=== PATIENT | male | born 1975 | race American Indian/Alaskan Native ===

== ENCOUNTER 2021-09-14 12:18 | Inpatient (IN) | payer BC ==
[2021-09-14] MEDS ORDERED: SODIUM CHLORIDE 0.9% 1000 ML IV SOLN IV ONE (13:32)
--- NOTE | 2021-09-14 13:42 | Emergency Department Report ---
ED General Adult HPI - General Chief complaint: Chest Pain Stated complaint: SOB/CHEST PAIN/ TEMP Time Seen by Provider: 09/14/21 13:05 Source: patient Mode of arrival: Ambulatory Limitations: No Limitations - History of Present Illness Initial comments: The patient presents to the emergency department chief complaint of chest pain and fever that started this morning. Patient states that he has a history of lung cancer and is currently going through chemotherapy. Patient also states he has a history of HIV. He describes the chest pain is sharp in nature and denies any radiation of the chest pain. It is located throughout his whole chest. Patient states that he had a fever of 103 at home. He denies abdominal pain or headache. -: Sudden Location: chest Radiation: non-radiation Severity scale (0 -10): 7 Quality: sharp Consistency: constant Improves with: none Worsens with: none Associated Symptoms: denies other symptoms Treatments Prior to Arrival: none - Related Data Allergies Allergy/AdvReac Type Severity Reaction Status Date / Time No Known Allergies Allergy Unverified 09/14/21 13:00 ED Review of Systems ROS: Stated complaint: SOB/CHEST PAIN/ TEMP Other details as noted in HPI Constitutional: fever. denies: chills Eyes: denies: eye pain, eye discharge, vision change ENT: denies: ear pain, throat pain Respiratory: denies: cough, shortness of breath, wheezing Cardiovascular: chest pain. denies: palpitations Endocrine: no symptoms reported Gastrointestinal: denies: abdominal pain, nausea, diarrhea Genitourinary: denies: urgency, dysuria Musculoskeletal: denies: back pain, joint swelling, arthralgia Skin: denies: rash, lesions Neurological: denies: headache, weakness, paresthesias Psychiatric: denies: anxiety, depression Hematological/Lymphatic: denies: easy bleeding, easy bruising ED Past Medical Hx - Past Medical History Previous Medical History?: Yes Hx HIV: Yes Additional medical history: cancer ED Physical Exam - General Limitations: No Limitations General appearance: alert, in no apparent distress - Head Head exam: Present: atraumatic, normocephalic - Eye Eye exam: Present: normal appearance, PERRL, EOMI - ENT ENT exam: Present: mucous membranes moist - Neck Neck exam: Present: normal inspection - Respiratory Respiratory exam: Present: decreased breath sounds. Absent: respiratory distress - Cardiovascular Cardiovascular Exam: Present: normal rhythm, tachycardia. Absent: systolic murmur, diastolic murmur, rubs, gallop - GI/Abdominal GI/Abdominal exam: Present: soft, normal bowel sounds. Absent: distended, tenderness - Rectal Rectal exam: Present: deferred - Extremities Exam Extremities exam: Present: normal inspection - Back Exam Back exam: Present: normal inspection - Neurological Exam Neurological exam: Present: alert, oriented X3, CN II-XII intact. Absent: motor sensory deficit - Psychiatric Psychiatric exam: Present: normal affect, normal mood - Skin Skin exam: Present: warm, dry, intact, normal color. Absent: rash ED Course Vital Signs 09/14/21 09/14/21 09/14/21 12:57 13:15 13:24 Temperature 102 F H Pulse Rate 148 H Respiratory 18 Rate Blood Pressure Blood Pressure 104/78 [Left] O2 Sat by Pulse 99 99 92 Oximetry 09/14/21 09/14/21 09/14/21 13:30 13:45 14:00 Temperature Pulse Rate 139 H 137 H 137 H Respiratory 32 H 27 H 45 H Rate Blood Pressure 115/83 107/79 112/75 Blood Pressure [Left] O2 Sat by Pulse 95 94 95 Oximetry 09/14/21 09/14/21 09/14/21 14:15 16:10 16:35 Temperature 98.3 F Pulse Rate 134 H 121 H 121 H Respiratory 17 18 18 Rate Blood Pressure 114/80 110/75 Blood Pressure 110/75 [Left] O2 Sat by Pulse 96 99 99 Oximetry ED Medical Decision Making - Lab Data Result diagrams: 09/14/21 14:01 09/14/21 14:01 Lab Results 09/14/21 09/14/21 09/14/21 Range/Units 14:01 14:01 14:01 WBC 1.5 L* (4.5-11.0) K/mm3 RBC 2.54 L (3.65-5.03) M/mm3 Hgb 7.1 L (11.8-15.2) gm/dl Hct 21.6 L (35.5-45.6) % MCV 85 (84-94) fl MCH 28 (28-32) pg MCHC 33 (32-34) % RDW 18.8 H (13.2-15.2) % Plt Count 223 (140-440) K/mm3 Garfield % (Auto) Make Up Arranger Seg Neutrophils % Make Up Arranger APTT 43.4 H (24.2-36.6) Sec. Sodium 126 L (137-145) mmol/L Potassium 4.2 (3.6-5.0) mmol/L Chloride 89.0 L (98-107) mmol/L Carbon Dioxide 28 (22-30) mmol/L Anion Gap 13 mmol/L BUN 8 L (9-20) mg/dL Creatinine 0.6 L (0.8-1.3) mg/dL Estimated GFR > 60 ml/min BUN/Creatinine Ratio 13 % Glucose 115 H (75-100) mg/dL Lactic Acid (0.7-2.0) mmol/L Calcium 8.6 (8.4-10.2) mg/dL Total Bilirubin 0.40 (0.1-1.2) mg/dL AST 21 (5-40) units/L ALT 16 (7-56) units/L Alkaline Phosphatase 105 (35-129) units/L Troponin T < 0.010 (0.00-0.029) ng/mL Total Protein 7.1 (6.3-8.2) g/dL Albumin 2.7 L (3.9-5) g/dL Albumin/Globulin Ratio 0.6 % 09/14/ Range/Units 14:01 WBC (4.5-11.0) K/mm3 RBC (3.65-5.03) M/mm3 Hgb (11.8-15.2) gm/dl Hct (35.5-45.6) % MCV (84-94) fl MCH (28-32) pg MCHC (32-34) % RDW (13.2-15.2) % Plt Count (140-440) K/mm3 Garfield % (Auto) Seg Neutrophils % APTT (24.2-36.6) Sec. Sodium (137-145) mmol/L Potassium (3.6-5.0) mmol/L Chloride (98-107) mmol/L Carbon Dioxide (22-30) mmol/L Anion Gap mmol/L BUN (9-20) mg/dL Creatinine (0.8-1.3) mg/dL Estimated GFR ml/min BUN/Creatinine Ratio % Glucose (75-100) mg/dL Lactic Acid 1.10 (0.7-2.0) mmol/L Calcium (8.4-10.2) mg/dL Total Bilirubin (0.1-1.2) mg/dL AST (5-40) units/L ALT (7-56) units/L Alkaline Phosphatase (35-129) units/L Troponin T (0.00-0.029) ng/mL Total Protein (6.3-8.2) g/dL Albumin (3.9-5) g/dL Albumin/Globulin Ratio % - EKG Data -: EKG Interpreted by Me EKG shows normal: sinus rhythm Rate: tachycardia - Radiology Data Radiology results: report reviewed - Medical Decision Making IV fluids antibiotics given Results discussed with patient Critical Care Time: Yes Critical care time in (mins) excluding proc time.: 35 Critical care attestation.: If time is entered above; I have spent that time in minutes in the direct care of this critically ill patient, excluding procedure time. ED Disposition Clinical Impression: Sepsis, Pneumonia Disposition: 01 HOME / SELF CARE / HOMELESS Is pt being admited?: No Does the pt Need Aspirin: No Condition: Fair
[2021-09-14] MEDS ORDERED: ACETAMINOPHEN 500 MG TAB PO ONE (13:57)
--- NOTE | 2021-09-14 14:10 | XRay Report ---
CHEST 1 VIEW 09/14/2021 1:45 PM INDICATION / CLINICAL INFORMATION: sepsis. COMPARISON: None available. FINDINGS: SUPPORT DEVICES: There are bilateral vascular stents which appear to extend from the right and left s ubclavian veins to the lower SVC. HEART / MEDIASTINUM: Heart size is within normal limits. LUNGS / PLEURA: There is consolidation with cystic change throughout the right upper lobe. The right lower lung and left lung are generally clear. There is minimal patchy infiltration in the left midlun g. No pleural effusion or pneumothorax. ADDITIONAL FINDINGS: No significant additional findings. IMPRESSION: Right upper lobe consolidation with suggestion of cystic change. This could represent an acute infect ious process or atypical infection such as fungal disease or tuberculosis. I suppose chronic radiatio n changes could also have this appearance. There is minimal infiltration in the left midlung. Conside r further evaluation with CT with contrast. Signer Name: Stuart Lewis Jr, MD Signed: 09/14/2021 2:05 PM Workstation Name: [id number]
[2021-09-14 14:58] LABS: Alanine Aminotransferase 16 units/L (7-56); Albumin 2.7 g/dL (3.9-5); Blood Urea Nitrogen 8 mg/dL (9-20); Calcium 8.6 mg/dL (8.4-10.2); Hemolysis Index 0
[2021-09-14 15:12] LABS: Hematocrit 21.6 % (35.5-45.6); Hemoglobin 7.1 gm/dl (11.8-15.2); Mean Corpuscular HGB Conc 33 % (32-34); Mean Corpuscular Volume 85 fl (84-94); Platelet Count 223 K/mm3 (140-440); Red Blood Count 2.54 M/mm3 (3.65-5.03); Red Cell Distribution Width 18.8 % (13.2-15.2)
[2021-09-14 15:16] LABS: BUN/Creatinine Ratio 13
--- NOTE | 2021-09-14 16:02 | Cat Scan Report ---
CTA CHEST WITH CONTRAST INDICATION / CLINICAL INFORMATION: CP/tachycardic/Lung CA history 100ml of [id number]. TECHNIQUE: Axial CT images were obtained through the chest after injection of IV contrast. 3 plane VA P and/or 3D reconstructions were produced. All CT scans at this location are performed using CT dose reduction for ALARA by means of automated exposure control. COMPARISON: No prior chest CT for comparison. Chest radiograph earlier on same date FINDINGS: PULMONARY EMBOLUS: None. THORACIC AORTA: No significant abnormality. HEART: No significant abnormality. CORONARY ARTERY CALCIFICATION: Absent -- None. MEDIASTINUM / EMIL: Right subclavian/SVC stent is patent. Left subclavian/SVC stent is present but no t well opacified due to phase of injection. PLEURA: Tiny right pleural effusion. No pneumothorax. LUNGS: Large cavitary mass at the right lung apex measuring about 8.6 x 7.3 cm. Volume loss in the ri ght upper lobe with narrowing of the right upper lobe bronchi. Right upper lobe pneumonitis with nodu lar parenchymal densities in the right middle lobe, posterior right lower lobe, and lingular segment of the left upper lobe. Left lower lobe appears clear. ADDITIONAL FINDINGS: None. UPPER ABDOMEN: No acute findings. SKELETAL STRUCTURES: No significant osseous abnormality. IMPRESSION: 1. No CT evidence for pulmonary embolism. 2. Large cavitary mass at the right lung apex likely represents the patient's known lung cancer. 3. Right upper lobe pneumonitis with nodular parenchymal densities in the upper lobes which could rep resent pneumonitis or potentially lymphangitic spread/metastatic disease. Signer Name: Melita Rivera MD Signed: 09/14/2021 3:58 PM Workstation Name: [id number]
--- NOTE | 2021-09-14 16:34 | History and Physical Report ---
History of Present Illness Chief complaint: My chest hurts History of present illness: 46 YO Male with HIV, Malnutrition, Right Lung Malignancy presents to ED for evaluation. Patient reports "my chest hurts". Patient states that he has experienced chest wall discomfort over the past 3 days with worsening symptoms over the past 1 day. Patient states that pain is 3-7/10, constant, nonradiating, not worsened with exertion, not relieved with rest. Patient also reports fever 103 F while at home. Patient transported to [facility] for further care and evaluation of the aforementioned symptoms. The patient was seen and evaluated upon arrival to the emergency department. All lab and imaging studies reviewed. Patient found to have a fever of 103 F, heart rate of 148 bpm, and a blood pressure of 104/75 5 mmHg. Patient underwent chest x-ray which revealed right upper lobe pneumonia complicated by sepsis, malnutrition, and HIV disease. Patient admitted to medical floor and initiated on pneumonia protocol as well as sepsis protocol. Patient knowledges fever but denies chills, palpitations, skin rash recent contact, known exposure to COVID-19. No prior admission for review. No medication listed at time of admission for reconciliation. Advanced care planning conducted in ED. Past History Past Medical History: cancer, HIV/AIDS Past Surgical History: No surgical history, Other (Reviewed) Social history: single. denies: smoking, alcohol abuse, prescription drug abuse Family history: hypertension Medications and Allergies Allergies Allergy/AdvReac Type Severity Reaction Status Date / Time No Known Allergies Allergy Unverified 09/14/21 13:00 Review of Systems Constitutional: fever Ears, nose, mouth and throat: no ear pain, no ear discharge, no tinnitis, no nasal discharge Cardiovascular: no chest pain, no palpitations, no rapid/irregular heart beat Respiratory: pleurisy, no cough with sputum, no excessive sputum, no congestion Gastrointestinal: no abdominal pain, no nausea, no vomiting, no diarrhea, no constipation, no change in bowel habits Genitourinary Male: no hematuria, no flank pain, no discharge, no urinary frequency, no urinary hesitancy Rectal: no bleeding Musculoskeletal: no neck stiffness, no neck pain, no low back pain, no shooting leg pain Integumentary: no rash, no sores, no wounds, no boils Neurological: no head injury, no weakness, no numbness, no tingling, no syncope Psychiatric: no anxiety, no change in sleep habits, no hypersomnia, no change in libido, no suicidal ideation Endocrine: no polyphagia, no nocturia, no excessive sweating Hematologic/Lymphatic: no easy bruising, no easy bleeding, no lymphedema Allergic/Immunologic: no urticaria, no persistent infections, no anaphylaxis Exam - Constitutional Vitals: Temp Pulse Resp BP Pulse Ox 98.3 F 121 H 18 110/75 99 09/14/21 16:10 09/14/21 16:10 09/14/21 16:10 09/14/21 16:10 09/14/21 16:10 General appearance: Present: mild distress, cachectic - EENT Eyes: Present: PERRL ENT: hearing intact, clear oral mucosa - Neck Neck: Present: supple, normal ROM - Respiratory Respiratory effort: normal Respiratory: right: diminished - Cardiovascular Heart Sounds: Present: S1 & S2. Absent: rub, click - Extremities Extremities: pulses symmetrical, No edema Peripheral Pulses: within normal limits - Abdominal General gastrointestinal: Present: soft, non-tender, non-distended, normal bowel sounds Male genitourinary: Present: normal - Integumentary Integumentary: Present: clear, warm, dry - Musculoskeletal Musculoskeletal: gait normal, strength equal bilaterally - Psychiatric Psychiatric: appropriate mood/affect, intact judgment & insight - Neurologic Neurologic: CNII-XII intact, moves all extremities HEART Score - HEART Score Troponin: Troponin T < 0.010 ng/mL (0.00-0.029) 09/14/21 14:01 Results - Labs CBC & Chem 7: 09/14/21 14:01 09/14/21 14:01 Labs: Abnormal lab results 09/14/21 09/14/21 Range/Units 14:01 14:01 APTT 43.4 H (24.2-36.6) Sec. Sodium 126 L (137-145) mmol/L Chloride 89.0 L (98-107) mmol/L BUN 8 L (9-20) mg/dL Creatinine 0.6 L (0.8-1.3) mg/dL Glucose 115 H (75-100) mg/dL Albumin 2.7 L (3.9-5) g/dL Assessment and Plan - Patient Problems (1) Sepsis Current Visit: Yes Status: Acute Plan to address problem: Sepsis protocol: Chest x-ray, CBC, urinalysis, IV antibiotic therapy, IV fluid resuscitation therapy, maintain mean arterial pressure greater than or equal to 65, blood culture, serial lactic acid level. (2) Cancer of right lung Current Visit: Yes Status: Acute Qualifiers: Lung location: upper lobe of lung Qualified Code(s): C34.11 - Malignant neoplasm of upper lobe, right bronchus or lung Plan to address problem: Outpatient oncology follow-up. Patient is status post 6 rounds of radiation therapy and is status post 5 rounds of chemotherapy. (3) Malnutrition Current Visit: Yes Status: Acute Qualifiers: Malnutrition type: protein-calorie malnutrition Protein-calorie malnutrition severity: severe Qualified Code(s): E43 - Unspecified severe protein-calorie malnutrition Plan to address problem: Increase protein intake, dietary supplementation. (4) HIV disease Current Visit: Yes Status: Acute Plan to address problem: Outpatient infectious disease follow-up, continue current medical management. (5) Hyponatremia syndrome Current Visit: Yes Status: Acute Plan to address problem: IV fluid resuscitation therapy, BMP, repeat BMP in AM. (6) Pneumonia Current Visit: Yes Status: Acute Plan to address problem: Pneumonia protocol: Chest x-ray, CBC, CMP, supplemental oxygen, IV antibiotic therapy, nebulized therapy, pulmonary toilet. (7) DVT prophylaxis Current Visit: Yes Status: Acute Plan to address problem: SCD to bilateral lower extremities while in bed (8) Advance care planning Current Visit: Yes Status: Acute Plan to address problem: Disease education conducted, care plan discussed, diagnoses discussed, prognosis discussed, patient is full code. Patient knowledges understanding and agreement with care plan, +30 minutes. (9) Preventative health care Current Visit: Yes Status: Acute Plan to address problem: Patient counseled on risk factor reduction, medication compliance, outpatient follow-up with primary care physician for all age and risk factor appropriate screening test. +30 minutes.
[2021-09-14] MEDS ORDERED: HYDROmorphone 0.5 MG/0.5 ML INJ IV PRN ×2 (16:36→16:43)
[2021-09-14] MEDS ORDERED: oxyCODONE /ACETAMINOPHEN 5-325MG TAB PO PRN (16:39)
[2021-09-14] MEDS ORDERED: ACETAMINOPHEN 325 MG TAB PO PRN (16:39)
[2021-09-14] MEDS ORDERED: ALBUTEROL 2.5 MG/3 ML NEBU IH PRN (16:39)
[2021-09-14] MEDS ORDERED: ONDANSETRON 4 MG/2 ML INJ IV PRN (16:39)
[2021-09-14] MEDS ORDERED: cefTRIAXone/NS 2 GM/100 ML 2 GM/100 ML BAG IV SCH (17:00)
[2021-09-14] MEDS: AZITHROMYCIN/NS 500 MG/250 ML 500 MG/250 ML BAG IV SCH (18:32)
[2021-09-14 18:53] LABS: Band Neutrophils # (Manual) 0.1 K/mm3; Basophils % (Manual) 0 % (0.0-1.8); Eosinophils % (Manual) 0 % (0.0-4.3); Total Cells Counted 50
[2021-09-14 18:54] LABS: Anisocytosis 3+; Hypochromasia 2+
[2021-09-14 18:55] LABS: Platelet Estimate Consistent w Auto
[2021-09-14 19:46] LABS: Mucus,Urine FEW /HPF
[2021-09-14 20:12] LABS: Color,Urine Yellow (Yellow)
[2021-09-14 20:13] LABS: Bilirubin,Urine Negative (Negative); Urobilinogen,Urine 0.2 mg/dL (<2.0)
[2021-09-14 20:14] LABS: Blood,Urine Negative (Negative)
[2021-09-14] MEDS: SODIUM CHLORIDE 0.9% 1000 ML 1,000 ML IV SCH (21:49)
[2021-09-15] MEDS: ACETAMINOPHEN 325 MG TAB PO PRN ×3 (05:49→22:42)
[2021-09-15 06:17] LABS: Alanine Aminotransferase 16 units/L (7-56); Albumin 2.6 g/dL (3.9-5); Blood Urea Nitrogen 6 mg/dL (9-20); Calcium 8.3 mg/dL (8.4-10.2); Hemolysis Index 0
[2021-09-15 06:30] LABS: BUN/Creatinine Ratio 10
[2021-09-15 06:41] LABS: Hematocrit 20.5 % (35.5-45.6); Hemoglobin 6.9 gm/dl (11.8-15.2); Mean Corpuscular HGB Conc 34 % (32-34); Mean Corpuscular Volume 84 fl (84-94); Red Blood Count 2.43 M/mm3 (3.65-5.03)
[2021-09-15 06:42] LABS: Platelet Count 237 K/mm3 (140-440); Red Cell Distribution Width 18.7 % (13.2-15.2)
[2021-09-15] MEDS: SODIUM CHLORIDE 0.9% 1000 ML 1,000 ML IV SCH (09:05)
[2021-09-15 10:08] LABS: Basophils % (Manual) 0 % (0.0-1.8); Eosinophils % (Manual) 0 % (0.0-4.3); Hypochromasia 1+; Tear Drop Cells Few; Total Cells Counted 100
[2021-09-15 10:09] LABS: Platelet Estimate Consistent w Auto
[2021-09-15] MEDS ORDERED: SODIUM CHLORIDE 0.9% 500 ML 500 ML IV NR (10:55)
--- NOTE | 2021-09-15 10:56 | Progress Note ---
Assessment and Plan Assessment and plan: 46 YO Male with HIV, Malnutrition, Right Lung Malignancy presents to ED for evaluation of chest wall discomfort over the past 3 days with worsening symptoms over the past 1 day [employer]. Patient also reports fever 103 F while at home. Patient transported to [facility] for further care and evaluation of the aforementioned symptoms. The patient was seen and evaluated upon arrival to the emergency department. All lab and imaging studies reviewed. Patient underwent chest x- ray which revealed right upper lobe pneumonia complicated by sepsis, malnutrition, and HIV disease. Patient admitted to medical floor and initiated on pneumonia protocol as well as sepsis protocol. Sepsis History of right lung CA Right upper lobe pneumonia Anemia of chronic disease SIADH/hyponatremia Moderate protein calorie malnutrition HIV disease 09/15/2021. Continue IV antibiotics and follow-up blood cultures. Consult ID for further evaluation. We will transfuse 1 unit PRBCs given the hemoglobin of 6.9. History Interval history: No new issues overnight Hospitalist Physical - Constitutional Vitals: Temp Pulse Resp BP Pulse Ox 100 F H 124 H 17 119/85 96 09/15/21 05:42 09/15/21 05:42 09/15/21 06:49 09/15/21 05:42 09/15/21 05:42 General appearance: Present: mild distress, cachectic - EENT Eyes: Present: PERRL, EOM intact ENT: hearing intact, clear oral mucosa, dentition normal - Neck Neck: Present: supple, normal ROM - Respiratory Respiratory effort: normal Respiratory: bilateral: CTA - Cardiovascular Rhythm: regular Heart Sounds: Present: S1 & S2. Absent: gallop, rub - Extremities Extremities: no ischemia, No edema, Full ROM - Abdominal General gastrointestinal: soft, non-tender, non-distended, normal bowel sounds - Integumentary Integumentary: Present: clear, warm, dry - Neurologic Neurologic: CNII-XII intact, moves all extremities HEART Score - HEART Score Troponin: Troponin T < 0.010 ng/mL (0.00-0.029) 09/14/21 14:01 Results - Labs CBC & Chem 7: 09/15/21 05:17 09/15/21 05:17 Labs: Laboratory Last Values WBC 1.9 K/mm3 (4.5-11.0) L* 09/15/21 05:17 RBC 2.43 M/mm3 (3.65-5.03) L 09/15/21 05:17 Hgb 6.9 gm/dl (11.8-15.2) L 09/15/21 05:17 Hct 20.5 % (35.5-45.6) L 09/15/21 05:17 MCV 84 fl (84-94) 09/15/21 05:17 MCH 28 pg (28-32) 09/15/21 05:17 MCHC 34 % (32-34) 09/15/21 05:17 RDW 18.7 % (13.2-15.2) H 09/15/21 05:17 Plt Count 237 K/mm3 (140-440) 09/15/21 05:17 Rooks % (Auto) Wood Last Maker 09/14/21 14:01 Add Manual Diff Complete 09/15/21 05:17 Total Counted 100 09/15/21 05:17 Seg Neutrophils % Wood Last Maker 09/14/21 14:01 Seg Neuts % (Manual) 42.0 % (40.0-70.0) 09/15/21 05:17 Band Neutrophils % 0 % 09/15/21 05:17 Lymphocytes % (Manual) 26.0 % (13.4-35.0) 09/15/21 05:17 Reactive Lymphs % (Man) 0 % 09/15/21 05:17 Monocytes % (Manual) 32.0 % (0.0-7.3) H 09/15/21 05:17 Eosinophils % (Manual) 0 % (0.0-4.3) 09/15/21 05:17 Basophils % (Manual) 0 % (0.0-1.8) 09/15/21 05:17 Metamyelocytes % 0 % 09/15/21 05:17 Myelocytes % 0 % 09/15/21 05:17 Promyelocytes % 0 % 09/15/21 05:17 Blast Cells % 0 % 09/15/21 05:17 Nucleated RBC % Not Reportable 09/15/21 05:17 Seg Neutrophils # Man 0.8 K/mm3 (1.8-7.7) L 09/15/21 05:17 Band Neutrophils # 0.0 K/mm3 09/15/21 05:17 Lymphocytes # (Manual) 0.5 K/mm3 (1.2-5.4) L 09/15/21 05:17 Abs React Lymphs (Man) 0.0 K/mm3 09/15/21 05:17 Monocytes # (Manual) 0.6 K/mm3 (0.0-0.8) 09/15/21 05:17 Eosinophils # (Manual) 0.0 K/mm3 (0.0-0.4) 09/15/21 05:17 Basophils # (Manual) 0.0 K/mm3 (0.0-0.1) 09/15/21 05:17 Metamyelocytes # 0.0 K/mm3 09/15/21 05:17 Myelocytes # 0.0 K/mm3 09/15/21 05:17 Promyelocytes # 0.0 K/mm3 09/15/21 05:17 Blast Cells # 0.0 K/mm3 09/15/21 05:17 WBC Morphology Not Reportable 09/15/21 05:17 Hypersegmented Neuts Not Reportable 09/15/21 05:17 Hyposegmented Neuts Not Reportable 09/15/21 05:17 Hypogranular Neuts Not Reportable 09/15/21 05:17 Smudge Cells Not Reportable 09/15/21 05:17 Toxic Granulation Not Reportable 09/15/21 05:17 Toxic Vacuolation Not Reportable 09/15/21 05:17 Dohle Bodies Not Reportable 09/15/21 05:17 Pelger-Huet Anomaly Not Reportable 09/15/21 05:17 Hal Rods Not Reportable 09/15/21 05:17 Platelet Estimate Consistent w auto 09/15/21 05:17 Clumped Platelets Not Reportable 09/15/21 05:17 Plt Clumps, EDTA Not Reportable 09/15/21 05:17 Large Platelets Not Reportable 09/15/21 05:17 Giant Platelets Not Reportable 09/15/21 05:17 Platelet Satelliting Not Reportable 09/15/21 05:17 Plt Morphology Comment Not Reportable 09/15/21 05:17 RBC Morphology Not Reportable 09/15/21 05:17 Dimorphic RBCs Not Reportable 09/15/21 05:17 Polychromasia Few 09/15/21 05:17 Hypochromasia 1+ 09/15/21 05:17 Poikilocytosis Not Reportable 09/15/21 05:17 Anisocytosis Not Reportable 09/15/21 05:17 Microcytosis Not Reportable 09/15/21 05:17 Macrocytosis Not Reportable 09/15/21 05:17 Spherocytes Not Reportable 09/15/21 05:17 Pappenheimer Bodies Not Reportable 09/15/21 05:17 Sickle Cells Not Reportable 09/15/21 05:17 Target Cells Not Reportable 09/15/21 05:17 Tear Drop Cells Few 09/15/21 05:17 Ovalocytes Not Reportable 09/15/21 05:17 Helmet Cells Not Reportable 09/15/21 05:17 [place] Bodies Not Reportable 09/15/21 05:17 [place] Rings Not Reportable 09/15/21 05:17 Elisabet Cells Not Reportable 09/15/21 05:17 Bite Cells Not Reportable 09/15/21 05:17 Crenated Cell Not Reportable 09/15/21 05:17 Elliptocytes Not Reportable 09/15/21 05:17 Acanthocytes (Spur) Not Reportable 09/15/21 05:17 Rouleaux Not Reportable 09/15/21 05:17 Hemoglobin C Crystals Not Reportable 09/15/21 05:17 Schistocytes Not Reportable 09/15/21 05:17 Malaria parasites Not Reportable 09/15/21 05:17 Rogelio Bodies Not Reportable 09/15/21 05:17 Hem Pathologist Commnt No 09/15/21 05:17 APTT 43.4 Sec. (24.2-36.6) H 09/14/21 14:01 Sodium 129 mmol/L (137-145) L 09/15/21 05:17 Potassium 3.9 mmol/L (3.6-5.0) 09/15/21 05:17 Chloride 93.7 mmol/L (98-107) L 09/15/21 05:17 Carbon Dioxide 27 mmol/L (22-30) 09/15/21 05:17 Anion Gap 12 mmol/L 09/15/21 05:17 BUN 6 mg/dL (9-20) L 09/15/21 05:17 Creatinine 0.6 mg/dL (0.8-1.3) L 09/15/21 05:17 Estimated GFR > 60 ml/min 09/15/21 05:17 BUN/Creatinine Ratio 10 % 09/15/21 05:17 Glucose 114 mg/dL (75-100) H 09/15/21 05:17 Lactic Acid 0.90 mmol/L (0.7-2.0) 09/15/21 00:03 Calcium 8.3 mg/dL (8.4-10.2) L 09/15/21 05:17 Total Bilirubin 0.30 mg/dL (0.1-1.2) 09/15/21 05:17 AST 20 units/L (5-40) 09/15/21 05:17 ALT 16 units/L (7-56) 09/15/21 05:17 Alkaline Phosphatase 94 units/L (35-129) 09/15/21 05:17 Troponin T < 0.010 ng/mL (0.00-0.029) 09/14/21 14:01 Total Protein 6.7 g/dL (6.3-8.2) 09/15/21 05:17 Albumin 2.6 g/dL (3.9-5) L 09/15/21 05:17 Albumin/Globulin Ratio 0.6 % 09/15/21 05:17 Urine Color Yellow (Yellow) 09/14/21 16:56 Urine Turbidity Clear (Clear) 09/14/21 16:56 Urine pH 6.0 (5.0-7.0) 09/14/21 16:56 Ur Specific [place] 1.015 (1.003-1.030) 09/14/21 16:56 Urine Protein 30 mg/dl mg/dL (Negative) 09/14/21 16:56 Urine Glucose (UA) Negative mg/dL (Negative) 09/14/21 16:56 Urine Ketones Negative mg/dL (Negative) 09/14/21 16:56 Urine Blood Negative (Negative) 09/14/21 16:56 Urine Nitrite Negative (Negative) 09/14/21 16:56 Ur Reducing Substances Not Reportable 09/14/21 16:56 Urine Bilirubin Negative (Negative) 09/14/21 16:56 Urine Ictotest Not Reportable 09/14/21 16:56 Urine Urobilinogen 0.2 mg/dL (<2.0) 09/14/21 16:56 Ur Leukocyte Esterase Negative (Negative) 09/14/21 16:56 Urine WBC (Auto) 3.0 /HPF (0.0-6.0) 09/14/21 16:56 Urine RBC (Auto) 4.0 /HPF (0.0-6.0) 09/14/21 16:56 Urine Mucus Few /HPF 09/14/21 16:56 Microbiology: Microbiology 09/14/21 14:01 Peripheral/Venous Blood Culture - Preliminary Culture in Progress 09/14/21 14:01 Peripheral/Venous Blood Culture - Preliminary Culture in Progress [place]/IV: Voiding Method Urinal Active Medications - Current Medications Current Medications: Generic Name Dose Route Start Last Admin Trade Name Freq PRN Reason Stop Dose Admin Acetaminophen 650 mg 09/14/21 16:36 09/15/21 05:49 Acetaminophen 325 Mg Tab PO 650 mg Q6H PRN Administration Pain, Mild (1-3) Acetaminophen 650 mg 09/14/21 16:39 Acetaminophen 325 Mg Tab PO Q4H PRN Pain MILD(1-3)/Fever >100.5/HYATT Albuterol 2.5 mg 09/14/21 16:39 Albuterol 2.5 Mg/3 Ml Nebu IH Q4HRT PRN Shortness Of Breath Hydromorphone HCl 0.5 mg 09/14/21 16:36 Hydromorphone 0.5 Mg/0.5 Ml Inj IV Q24H PRN Pain , Severe (7-10) Hydromorphone HCl 0.25 mg 09/14/21 16:43 Hydromorphone 0.5 Mg/0.5 Ml Inj IV Q24H PRN Pain, Moderate (4-6) Ceftriaxone Sodium 2 gm in 100 mls @ 200 mls/hr 09/14/21 17:00 09/14/21 17:27 Rocephin/Ns 2 Gm/100 Ml IV 200 mls/hr Q24H BEATA Administration Protocol Azithromycin 500 mg in 250 mls @ 250 mls/hr 09/14/21 17:00 09/14/21 18:32 Zithromax/Ns IV 250 mls/hr Q24H BEATA Administration Protocol Sodium Chloride 1,000 mls @ 125 mls/hr 09/14/21 16:45 09/15/21 09:05 Nacl 0.9% 1000 Ml IV 125 mls/hr DIRECT BEATA Administration Ondansetron HCl 4 mg 09/14/21 16:39 Ondansetron 4 Mg/2 Ml Inj IV Q8H PRN Nausea And Vomiting Oxycodone/Acetaminophen 1 tab 09/14/21 16:39 Oxycodone /Acetaminophen 5-325mg Tab PO Q16H PRN Pain, Moderate (4-6) Sodium Chloride 10 ml 09/14/21 22:00 09/14/21 21:50 Sodium Chloride 0.9% 10 Ml Flush Syringe IV 10 ml BID BEATA Administration Sodium Chloride 10 ml 09/14/21 16:39 Sodium Chloride 0.9% 10 Ml Flush Syringe IV PRN PRN LINE FLUSH
[2021-09-15] MEDS ORDERED: VANCOMYCIN 1,000 MG in SODIUM CHLORIDE 0.9% 500 ML 500 ML IV ONE (12:18)
--- NOTE | 2021-09-15 12:27 | Consultation ---
History of Present Illness - Reason for Consult Consult date: 09/15/21 HIV, pneumonia Requesting physician: ROCK POOL - History of Present Illness The patient is a 46-year-old male with HIV, lung cancer, on chemotherapy currently was admitted to the hospital with chest pain and fever of 1 day duration. Upon admission, had a fever of 102 F. Labs revealed leukopenia with WBC 1.5, 20% neutrophils. Also found to have hyponatremia. Chest x-ray showed right upper lobe consolidation with cystic change. CT chest revealed a large cavitary mass in the right lung apex likely representing patient's lung cancer. Also right upper lobe pneumonitis, possible lymphangitic spread. Infectious diseases was consulted for antibiotic management. Review of Systems: General: Fever HEENT: no new visual disturbance Respiratory: Cough, sputum production Cardiovascular: No chest pain, syncope Gastrointestinal: No nausea, vomiting or diarrhea Genitourinary: No dysuria or hematuria Musculoskeletal: No new or worsening neck pain or back pain Neurologic: No headaches, seizures Hematologic: No easy bruising or bleeding Endocrine: No night sweats or acute weight loss Skin: negative for rash, jaundice Psychiatric: No suicidal or homicidal ideation Past History Past Medical History: cancer, HIV/AIDS Past Surgical History: No surgical history, Other (Reviewed) Social history: single. denies: smoking, alcohol abuse, prescription drug abuse Family history: hypertension Medications and Allergies Allergies Allergy/AdvReac Type Severity Reaction Status Date / Time No Known Allergies Allergy Unverified 09/14/21 13:00 Home Medications Medication Instructions Recorded Confirmed Last Taken Type Apixaban [Eliquis] 5 mg PO QDAY 09/15/21 09/15/21 Unknown History Elviteg/Amarilys/Emtric/Tenofo Ala 1 tab PO DAILY 09/15/21 09/15/21 Unknown History [Genvoya (Nf)] Marinol 1 cap PO BID 09/15/21 Unknown History Active Meds: Active Medications Acetaminophen (Acetaminophen 325 Mg Tab) 650 mg PO Q6H PRN PRN Reason: Pain, Mild (1-3) Last Admin: 09/15/21 05:49 Dose: 650 mg Acetaminophen (Acetaminophen 325 Mg Tab) 650 mg PO Q4H PRN PRN Reason: Pain MILD(1-3)/Fever >100.5/HYATT Albuterol (Albuterol 2.5 Mg/3 Ml Nebu) 2.5 mg IH Q4HRT PRN PRN Reason: Shortness Of Breath Hydromorphone HCl (Hydromorphone 0.5 Mg/0.5 Ml Inj) 0.5 mg IV Q24H PRN PRN Reason: Pain , Severe (7-10) Hydromorphone HCl (Hydromorphone 0.5 Mg/0.5 Ml Inj) 0.25 mg IV Q24H PRN PRN Reason: Pain, Moderate (4-6) Azithromycin (Zithromax/Ns) 500 mg in 250 mls @ 250 mls/hr IV Q24H BEATA; Protocol Last Admin: 09/14/21 18:32 Dose: 250 mls/hr Sodium Chloride (Nacl 0.9% 1000 Ml) 1,000 mls @ 125 mls/hr IV DIRECT BEATA Last Admin: 09/15/21 09:05 Dose: 125 mls/hr Sodium Chloride (Nacl 0.9% 500 Ml) 500 mls @ 0 mls/hr IV ONCE NR Stop: 09/15/21 18:00 Cefepime HCl (Cefepime/Ns 2 Gm/100 Ml) 2 gm in 100 mls @ 200 mls/hr IV Q12HR BEATA; Protocol Vancomycin HCl 1,000 mg/ (Sodium Chloride) 520 mls @ 333 mls/hr IV ONCE ONE; Protocol Stop: 09/15/21 13:48 Ondansetron HCl (Ondansetron 4 Mg/2 Ml Inj) 4 mg IV Q8H PRN PRN Reason: Nausea And Vomiting Oxycodone/Acetaminophen (Oxycodone /Acetaminophen 5-325mg Tab) 1 tab PO Q16H PRN PRN Reason: Pain, Moderate (4-6) Sodium Chloride (Sodium Chloride 0.9% 10 Ml Flush Syringe) 10 ml IV BID BEATA Last Admin: 09/14/21 21:50 Dose: 10 ml Sodium Chloride (Sodium Chloride 0.9% 10 Ml Flush Syringe) 10 ml IV PRN PRN PRN Reason: LINE FLUSH Physical Examination - Physical Exam Narrative exam: Physical Exam: Constitutional: Alert, cooperative. No acute distress Head, Ears, Nose: Normocephalic, atraumatic. External ears, nose normal Eyes: Conjunctivae/corneas clear. No icterus. No ptosis. Neck: Supple, no meningeal signs Cardiovascular: S1, S2 + Respiratory: few rhonchi on R side GI: Soft, non-tender; bowel sounds normal. No peritoneal signs Musculoskeletal: No pedal edema, no cyanosis. Skin: No rash or abscess Hem/Lymphatic: No palpable cervical or supraclavicular nodes. No lymphangitis Psych: Mood ok. Affect normal Neurological: Awake, alert, oriented. No gross abnormality - Constitutional Vitals: Vital Signs Temp Pulse Resp BP Pulse Ox 100 F H 124 H 17 119/85 96 09/15/21 05:42 09/15/21 05:42 09/15/21 06:49 09/15/21 05:42 09/15/21 05:42 Temperature -Last 24 Hours Temperature 100 F Temperature 98.3 F Temperature 98.3 F Temperature 102 F Results - Labs CBC & Chem 7: 09/15/21 05:17 09/15/21 05:17 Labs: Abnormal lab results 09/14/21 09/14/21 09/14/21 Range/Units 14:01 14:01 14:01 WBC 1.5 L* (4.5-11.0) K/mm3 RBC 2.54 L (3.65-5.03) M/mm3 Hgb 7.1 L (11.8-15.2) gm/dl Hct 21.6 L (35.5-45.6) % RDW 18.8 H (13.2-15.2) % Seg Neuts % (Manual) 20.0 L (40.0-70.0) % Lymphocytes % (Manual) 44.0 H (13.4-35.0) % Monocytes % (Manual) 30.0 H (0.0-7.3) % Seg Neutrophils # Man 0.3 L (1.8-7.7) K/mm3 Lymphocytes # (Manual) 0.7 L (1.2-5.4) K/mm3 APTT 43.4 H (24.2-36.6) Sec. Sodium 126 L (137-145) mmol/L Chloride 89.0 L (98-107) mmol/L BUN 8 L (9-20) mg/dL Creatinine 0.6 L (0.8-1.3) mg/dL Glucose 115 H (75-100) mg/dL Calcium (8.4-10.2) mg/dL Albumin 2.7 L (3.9-5) g/dL 09/15/21 09/15/21 Range/Units 05:17 05:17 WBC 1.9 L* (4.5-11.0) K/mm3 RBC 2.43 L (3.65-5.03) M/mm3 Hgb 6.9 L (11.8-15.2) gm/dl Hct 20.5 L (35.5-45.6) % RDW 18.7 H (13.2-15.2) % Seg Neuts % (Manual) (40.0-70.0) % Lymphocytes % (Manual) (13.4-35.0) % Monocytes % (Manual) 32.0 H (0.0-7.3) % Seg Neutrophils # Man 0.8 L (1.8-7.7) K/mm3 Lymphocytes # (Manual) 0.5 L (1.2-5.4) K/mm3 APTT (24.2-36.6) Sec. Sodium 129 L (137-145) mmol/L Chloride 93.7 L (98-107) mmol/L BUN 6 L (9-20) mg/dL Creatinine 0.6 L (0.8-1.3) mg/dL Glucose 114 H (75-100) mg/dL Calcium 8.3 L (8.4-10.2) mg/dL Albumin 2.6 L (3.9-5) g/dL - Imaging and Cardiology Chest x-ray: report reviewed, image reviewed (RUL cavitary lesion with pneumonia) Assessment and Plan Cultures: 09/14/2021 blood culture: In process A/P: 46-year-old male with HIV, lung cancer, on chemotherapy currently was admitted to the hospital with chest pain and fever: #Sepsis, febrile neutropenia, likely secondary to right upper lobe pneumonia #HIV: Positive for 21 years, has mainly been undetectable, used to be on Genvoya but changed to Biktarvy due to drug interaction with Eliquis. Follows at [facility] #Stage IV lung cancer, on chemotherapy. Immunocompromised host. Follows at [facility]. #Hyponatremia: Probably SIADH given pneumonia and lung cancer. Recs: Empiric cefepime, vancomycin, azithromycin Sputum culture ordered MRSA nasal PCR ordered, if negative, discontinue vancomycin Continue Biktarvy for HIV, patient has his own but about 2 days of supply here, once he runs out, okay to change as per therapeutic interchange based on hospital formulary to Surekha Stahl MD, FACP, [facility] O: [phone] F: [phone] C: [phone]
[2021-09-15] MEDS ORDERED: VANCOMYCIN PHARMACY TO DOSE IV SCH (13:00)
[2021-09-15] MEDS: CEFEPIME/NS 2 GM/100 ML 2 GM/100 ML BAG IV SCH (13:48)
[2021-09-15] MEDS: VANCOMYCIN 1,250 MG in SODIUM CHLORIDE 0.9% 500 ML 250 ML IV SCH (17:08)
[2021-09-15] MEDS: AZITHROMYCIN/NS 500 MG/250 ML 500 MG/250 ML BAG IV SCH (18:39)
[2021-09-15] MEDS: HYDROmorphone 0.5 MG/0.5 ML INJ IV PRN (22:49)
[2021-09-16] MEDS: VANCOMYCIN 1,250 MG in SODIUM CHLORIDE 0.9% 500 ML 250 ML IV SCH ×2 (01:31→15:56)
[2021-09-16] MEDS: CEFEPIME/NS 2 GM/100 ML 2 GM/100 ML BAG IV SCH ×2 (01:34→14:51)
[2021-09-16] MEDS: SODIUM CHLORIDE 0.9% 1000 ML 1,000 ML IV SCH ×2 (01:39→14:47)
[2021-09-16 06:17] LABS: Blood Urea Nitrogen 5 mg/dL (9-20); Calcium 8.5 mg/dL (8.4-10.2); Hemolysis Index 2
[2021-09-16 06:24] LABS: BUN/Creatinine Ratio 10
[2021-09-16 06:33] LABS: Hematocrit 24.7 % (35.5-45.6); Hemoglobin 8.3 gm/dl (11.8-15.2); Mean Corpuscular HGB Conc 34 % (32-34); Mean Corpuscular Volume 84 fl (84-94); Platelet Count 270 K/mm3 (140-440); Red Blood Count 2.95 M/mm3 (3.65-5.03); Red Cell Distribution Width 17.6 % (13.2-15.2)
[2021-09-16 07:13] LABS: Total Cells Counted 100
[2021-09-16 07:15] LABS: Platelet Estimate Consistent w Auto
--- NOTE | 2021-09-16 08:34 | Progress Note ---
Assessment and Plan Assessment and plan: 46 YO Male with HIV, Malnutrition, Right Lung Malignancy presents to ED for evaluation of chest wall discomfort over the past 3 days with worsening symptoms over the past [address] [employer] [employer]. Patient also reports fever 103 F while at home. Patient transported to [facility] for further care and evaluation of the aforementioned symptoms. The patient was seen and evaluated upon arrival to the emergency department. All lab and imaging studies reviewed. Patient underwent chest x- ray which revealed right upper lobe pneumonia complicated by sepsis, malnutrition, and HIV disease. Patient admitted to medical floor and initiated on pneumonia protocol as well as sepsis protocol. Sepsis History of right lung CA Right upper lobe pneumonia Anemia of chronic disease SIADH/hyponatremia Moderate protein calorie malnutrition HIV disease 09/15/2021. Continue IV antibiotics and follow-up blood cultures. Consult ID for further evaluation. We will transfuse 1 unit PRBCs given the hemoglobin of 6.9. 09/16/2021. Patient request to be transferred to [place]. Patient reports that he will have a name and number of an accepting physician in the a.m. patient is s/p PRBCs with improvement of hemoglobin 8.5. Continue empiric antibiotics of cefepime, vancomycin and azithromycin. Follow-up blood and sputum cultures. If MRSA nasal PCR negative then discontinue vancomycin. ID following History Interval history: No new issues overnight Hospitalist Physical - Constitutional Vitals: Temp Pulse Resp BP Pulse Ox 98.9 F 119 H 16 115/86 96 09/15/21 16:29 09/15/21 16:29 09/15/21 16:29 09/15/21 16:29 09/15/21 19:00 General appearance: Present: no acute distress, cachectic - EENT Eyes: Present: PERRL, EOM intact ENT: hearing intact, clear oral mucosa, dentition normal - Neck Neck: Present: supple, normal ROM - Respiratory Respiratory effort: normal Respiratory: bilateral: CTA - Cardiovascular Rhythm: regular Heart Sounds: Present: S1 & S2. Absent: gallop, rub - Extremities Extremities: no ischemia, No edema, Full ROM - Abdominal General gastrointestinal: soft, non-tender, non-distended, normal bowel sounds - Integumentary Integumentary: Present: clear, warm, dry - Neurologic Neurologic: CNII-XII intact, moves all extremities HEART Score - HEART Score Troponin: Troponin T < 0.010 ng/mL (0.00-0.029) 09/14/21 14:01 Results - Labs CBC & Chem 7: 09/16/21 04:00 09/16/21 04:00 Labs: Laboratory Last Values WBC 2.5 K/mm3 (4.5-11.0) L 09/16/21 04:00 RBC 2.95 M/mm3 (3.65-5.03) L 09/16/21 04:00 Hgb 8.3 gm/dl (11.8-15.2) L 09/16/21 04:00 Hct 24.7 % (35.5-45.6) L 09/16/21 04:00 MCV 84 fl (84-94) 09/16/21 04:00 MCH 28 pg (28-32) 09/16/21 04:00 MCHC 34 % (32-34) 09/16/21 04:00 RDW 17.6 % (13.2-15.2) H 09/16/21 04:00 Plt Count 270 K/mm3 (140-440) 09/16/21 04:00 [place] % (Auto) [employer] 09/14/21 14:01 Add Manual Diff Complete 09/16/21 04:00 Total Counted 100 09/16/21 04:00 Seg Neutrophils % [employer] 09/14/21 14:01 Seg Neuts % (Manual) 37.0 % (40.0-70.0) L 09/16/21 04:00 Band Neutrophils % 1.0 % 09/16/21 04:00 Lymphocytes % (Manual) 41.0 % (13.4-35.0) H 09/16/21 04:00 Reactive Lymphs % (Man) 0 % 09/16/21 04:00 Monocytes % (Manual) 17.0 % (0.0-7.3) H 09/16/21 04:00 Eosinophils % (Manual) 1.0 % (0.0-4.3) 09/16/21 04:00 Basophils % (Manual) 1.0 % (0.0-1.8) 09/16/21 04:00 Metamyelocytes % 1.0 % 09/16/21 04:00 Myelocytes % 0 % 09/16/21 04:00 Promyelocytes % 0 % 09/16/21 04:00 Blast Cells % 1.0 % 09/16/21 04:00 Nucleated RBC % Not Reportable 09/16/21 04:00 Seg Neutrophils # Man 0.9 K/mm3 (1.8-7.7) L 09/16/21 04:00 Band Neutrophils # 0.0 K/mm3 09/16/21 04:00 Lymphocytes # (Manual) 1.0 K/mm3 (1.2-5.4) L 09/16/21 04:00 Abs React Lymphs (Man) 0.0 K/mm3 09/16/21 04:00 Monocytes # (Manual) 0.4 K/mm3 (0.0-0.8) 09/16/21 04:00 Eosinophils # (Manual) 0.0 K/mm3 (0.0-0.4) 09/16/21 04:00 Basophils # (Manual) 0.0 K/mm3 (0.0-0.1) 09/16/21 04:00 Metamyelocytes # 0.0 K/mm3 09/16/21 04:00 Myelocytes # 0.0 K/mm3 09/16/21 04:00 Promyelocytes # 0.0 K/mm3 09/16/21 04:00 Blast Cells # 0.5 K/mm3 09/16/21 04:00 WBC Morphology Not Reportable 09/16/21 04:00 Hypersegmented Neuts Not Reportable 09/16/21 04:00 Hyposegmented Neuts Not Reportable 09/16/21 04:00 Hypogranular Neuts Not Reportable 09/16/21 04:00 Smudge Cells Not Reportable 09/16/21 04:00 Toxic Granulation Not Reportable 09/16/21 04:00 Toxic Vacuolation Not Reportable 09/16/21 04:00 Dohle Bodies Not Reportable 09/16/21 04:00 Pelger-Huet Anomaly Not Reportable 09/16/21 04:00 Hal Rods Not Reportable 09/16/21 04:00 Platelet Estimate Consistent w auto 09/16/21 04:00 Clumped Platelets Not Reportable 09/16/21 04:00 Plt Clumps, EDTA Not Reportable 09/16/21 04:00 Large Platelets Not Reportable 09/16/21 04:00 Giant Platelets Not Reportable 09/16/21 04:00 Platelet Satelliting Not Reportable 09/16/21 04:00 Plt Morphology Comment Not Reportable 09/16/21 04:00 RBC Morphology Not Reportable 09/16/21 04:00 Dimorphic RBCs Not Reportable 09/16/21 04:00 Polychromasia Not Reportable 09/16/21 04:00 Hypochromasia Not Reportable 09/16/21 04:00 Poikilocytosis Not Reportable 09/16/21 04:00 Anisocytosis Not Reportable 09/16/21 04:00 Microcytosis Not Reportable 09/16/21 04:00 Macrocytosis Not Reportable 09/16/21 04:00 Spherocytes Not Reportable 09/16/21 04:00 Pappenheimer Bodies Not Reportable 09/16/21 04:00 Sickle Cells Not Reportable 09/16/21 04:00 Target Cells Not Reportable 09/16/21 04:00 Tear Drop Cells Not Reportable 09/16/21 04:00 Ovalocytes Not Reportable 09/16/21 04:00 Helmet Cells Not Reportable 09/16/21 04:00 Shanks-[place] Bodies Not Reportable 09/16/21 04:00 [place] Rings Not Reportable 09/16/21 04:00 Elisabet Cells Not Reportable 09/16/21 04:00 Bite Cells Not Reportable 09/16/21 04:00 Crenated Cell Not Reportable 09/16/21 04:00 Elliptocytes Not Reportable 09/16/21 04:00 Acanthocytes (Spur) Not Reportable 09/16/21 04:00 Rouleaux Not Reportable 09/16/21 04:00 Hemoglobin C Crystals Not Reportable 09/16/21 04:00 Schistocytes Not Reportable 09/16/21 04:00 Malaria parasites Not Reportable 09/16/21 04:00 Rogelio Bodies Not Reportable 09/16/21 04:00 Hem Pathologist Commnt No 09/16/21 04:00 APTT 43.4 Sec. (24.2-36.6) H 09/14/21 14:01 Sodium 132 mmol/L (137-145) L 09/16/21 04:00 Potassium 3.8 mmol/L (3.6-5.0) 09/16/21 04:00 Chloride 95.3 mmol/L (98-107) L 09/16/21 04:00 Carbon Dioxide 28 mmol/L (22-30) 09/16/21 04:00 Anion Gap 13 mmol/L 09/16/21 04:00 BUN 5 mg/dL (9-20) L 09/16/21 04:00 Creatinine 0.5 mg/dL (0.8-1.3) L 09/16/21 04:00 Estimated GFR > 60 ml/min 09/16/21 04:00 BUN/Creatinine Ratio 10 % 09/16/21 04:00 Glucose 103 mg/dL (75-100) H 09/16/21 04:00 Lactic Acid 0.90 mmol/L (0.7-2.0) 09/15/21 00:03 Calcium 8.5 mg/dL (8.4-10.2) 09/16/21 04:00 Total Bilirubin 0.30 mg/dL (0.1-1.2) 09/15/21 05:17 AST 20 units/L (5-40) 09/15/21 05:17 ALT 16 units/L (7-56) 09/15/21 05:17 Alkaline Phosphatase 94 units/L (35-129) 09/15/21 05:17 Troponin T < 0.010 ng/mL (0.00-0.029) 09/14/21 14:01 Total Protein 6.7 g/dL (6.3-8.2) 09/15/21 05:17 Albumin 2.6 g/dL (3.9-5) L 09/15/21 05:17 Albumin/Globulin Ratio 0.6 % 09/15/21 05:17 Urine Color Yellow (Yellow) 09/14/21 16:56 Urine Turbidity Clear (Clear) 09/14/21 16:56 Urine pH 6.0 (5.0-7.0) 09/14/21 16:56 Ur Specific [place] 1.015 (1.003-1.030) 09/14/21 16:56 Urine Protein 30 mg/dl mg/dL (Negative) 09/14/21 16:56 Urine Glucose (UA) Negative mg/dL (Negative) 09/14/21 16:56 Urine Ketones Negative mg/dL (Negative) 09/14/21 16:56 Urine Blood Negative (Negative) 09/14/21 16:56 Urine Nitrite Negative (Negative) 09/14/21 16:56 Ur Reducing Substances Not Reportable 09/14/21 16:56 Urine Bilirubin Negative (Negative) 09/14/21 16:56 Urine Ictotest Not Reportable 09/14/21 16:56 Urine Urobilinogen 0.2 mg/dL (<2.0) 09/14/21 16:56 Ur Leukocyte Esterase Negative (Negative) 09/14/21 16:56 Urine WBC (Auto) 3.0 /HPF (0.0-6.0) 09/14/21 16:56 Urine RBC (Auto) 4.0 /HPF (0.0-6.0) 09/14/21 16:56 Urine Mucus Few /HPF 09/14/21 16:56 Blood Type O NEGATIVE 09/15/21 10:55 Antibody Screen Negative 09/15/21 10:55 Crossmatch See Detail 09/15/21 10:55 Microbiology: Microbiology 09/14/21 14:01 Peripheral/Venous Blood Culture - Preliminary NO GROWTH AFTER 24 HOURS 09/14/21 14:01 Peripheral/Venous Blood Culture - Preliminary NO GROWTH AFTER 24 HOURS [place]/IV: Voiding Method Urinal Active Medications - Current Medications Current Medications: Generic Name Dose Route Start Last Admin Trade Name Freq PRN Reason Stop Dose Admin Acetaminophen 650 mg 09/14/21 16:36 09/15/21 22:42 Acetaminophen 325 Mg Tab PO 650 mg Q6H PRN Administration Pain, Mild (1-3) Acetaminophen 650 mg 09/14/21 16:39 Acetaminophen 325 Mg Tab PO Q4H PRN Pain MILD(1-3)/Fever >100.5/HYATT Albuterol 2.5 mg 09/14/21 16:39 Albuterol 2.5 Mg/3 Ml Nebu IH Q4HRT PRN Shortness Of Breath Hydromorphone HCl 0.5 mg 09/14/21 16:36 09/15/21 22:49 Hydromorphone 0.5 Mg/0.5 Ml Inj IV 0.5 mg Q24H PRN Administration Pain , Severe (7-10) Hydromorphone HCl 0.25 mg 09/14/21 16:43 Hydromorphone 0.5 Mg/0.5 Ml Inj IV Q24H PRN Pain, Moderate (4-6) Azithromycin 500 mg in 250 mls @ 250 mls/hr 09/14/21 17:00 09/15/21 19:55 Zithromax/Ns IV Infused Q24H BEATA Infusion Protocol Sodium Chloride 1,000 mls @ 125 mls/hr 09/14/21 16:45 09/16/21 01:39 Nacl 0.9% 1000 Ml IV 125 mls/hr DIRECT BEATA Administration Cefepime HCl 2 gm in 100 mls @ 200 mls/hr 09/15/21 14:00 09/16/21 06:35 Cefepime/Ns 2 Gm/100 Ml IV Infused Q12H BEATA Infusion Protocol Vancomycin HCl 1,250 mg/ 275 mls @ 137.5 mls/hr 09/15/21 14:00 09/16/21 06:33 Sodium Chloride IV Infused Q12H BEATA Infusion Protocol Ondansetron HCl 4 mg 09/14/21 16:39 Ondansetron 4 Mg/2 Ml Inj IV Q8H PRN Nausea And Vomiting Oxycodone/Acetaminophen 1 tab 09/14/21 16:39 Oxycodone /Acetaminophen 5-325mg Tab PO Q16H PRN Pain, Moderate (4-6) Sodium Chloride 10 ml 09/14/21 22:00 09/15/21 21:41 Sodium Chloride 0.9% 10 Ml Flush Syringe IV 10 ml BID BEATA Administration Sodium Chloride 10 ml 09/14/21 16:39 Sodium Chloride 0.9% 10 Ml Flush Syringe IV PRN PRN LINE FLUSH
[2021-09-16] MEDS: BENZONATATE 100 MG CAP PO SCH ×2 (10:45→10:47)
[2021-09-16] MEDS ORDERED: guaiFENesin DM 200/20 MG ORAL LIQD 10 ML PO PRN (13:07)
[2021-09-16] MEDS: AZITHROMYCIN/NS 500 MG/250 ML 500 MG/250 ML BAG IV SCH (17:28)
[2021-09-17] MEDS: CEFEPIME/NS 2 GM/100 ML 2 GM/100 ML BAG IV SCH (02:04)
[2021-09-17] MEDS: HYDROmorphone 0.5 MG/0.5 ML INJ IV PRN ×2 (02:07→06:13)
[2021-09-17] MEDS: VANCOMYCIN 1,250 MG in SODIUM CHLORIDE 0.9% 500 ML 250 ML IV SCH (02:07)
--- NOTE | 2021-09-17 08:42 | Progress Note ---
Assessment and Plan Assessment and plan: 46 YO Male with HIV, Malnutrition, Right Lung Malignancy presents to ED for evaluation of chest wall discomfort over the past 3 days with worsening symptoms over the past 1 day [employer]. Patient also reports fever 103 F while at home. Patient transported to [facility] for further care and evaluation of the aforementioned symptoms. The patient was seen and evaluated upon arrival to the emergency department. All lab and imaging studies reviewed. Patient underwent chest x- ray which revealed right upper lobe pneumonia complicated by sepsis, malnutrition, and HIV disease. Patient admitted to medical floor and initiated on pneumonia protocol as well as sepsis protocol. Sepsis History of right lung CA Right upper lobe pneumonia Anemia of chronic disease SIADH/hyponatremia Moderate protein calorie malnutrition HIV disease 09/15/2021. Continue IV antibiotics and follow-up blood cultures. Consult ID for further evaluation. We will transfuse 1 unit PRBCs given the hemoglobin of 6.9. 09/16/2021. Patient request to be transferred to [place]. Patient reports that he will have a name and number of an accepting physician in the a.m. patient is s/p PRBCs with improvement of hemoglobin 8.5. Continue empiric antibiotics of cefepime, vancomycin and azithromycin. Follow-up blood and sputum cultures. If MRSA nasal PCR negative then discontinue vancomycin. ID following 09/17/2021. Patient is requesting transfer to [facility]. Patient reports that he will have a name and number of an accepting physician later today. Continue empiric antibiotics of cefepime, vancomycin and azithromycin. Follow- up blood and sputum cultures. If MRSA nasal PCR negative then discontinue vancomycin. ID following History Interval history: No new issues overnight Hospitalist Physical - Constitutional Vitals: Temp Pulse Resp BP Pulse Ox 99.0 F 125 H 18 124/85 98 09/16/21 20:50 09/16/21 20:50 09/16/21 20:50 09/16/21 20:50 09/16/21 20:50 General appearance: Present: no acute distress, cachectic - EENT Eyes: Present: PERRL, EOM intact ENT: hearing intact, clear oral mucosa, dentition normal - Neck Neck: Present: supple, normal ROM - Respiratory Respiratory effort: normal Respiratory: bilateral: CTA - Cardiovascular Rhythm: regular Heart Sounds: Present: S1 & S2. Absent: gallop, rub - Extremities Extremities: no ischemia, No edema, Full ROM - Abdominal General gastrointestinal: soft, non-tender, non-distended, normal bowel sounds - Integumentary Integumentary: Present: clear, warm, dry - Neurologic Neurologic: CNII-XII intact, moves all extremities HEART Score - HEART Score Troponin: Troponin T < 0.010 ng/mL (0.00-0.029) 09/14/21 14:01 Results - Labs CBC & Chem 7: 09/16/21 04:00 09/16/21 04:00 Labs: Laboratory Last Values WBC 2.5 K/mm3 (4.5-11.0) L 09/16/21 04:00 RBC 2.95 M/mm3 (3.65-5.03) L 09/16/21 04:00 Hgb 8.3 gm/dl (11.8-15.2) L 09/16/21 04:00 Hct 24.7 % (35.5-45.6) L 09/16/21 04:00 MCV 84 fl (84-94) 09/16/21 04:00 MCH 28 pg (28-32) 09/16/21 04:00 MCHC 34 % (32-34) 09/16/21 04:00 RDW 17.6 % (13.2-15.2) H 09/16/21 04:00 Plt Count 270 K/mm3 (140-440) 09/16/21 04:00 [place] % (Auto) Human Resources Specialist 09/14/21 14:01 Add Manual Diff Complete 09/16/21 04:00 Total Counted 100 09/16/21 04:00 Seg Neutrophils % Human Resources Specialist 09/14/21 14:01 Seg Neuts % (Manual) 37.0 % (40.0-70.0) L 09/16/21 04:00 Band Neutrophils % 1.0 % 09/16/21 04:00 Lymphocytes % (Manual) 41.0 % (13.4-35.0) H 09/16/21 04:00 Reactive Lymphs % (Man) 0 % 09/16/21 04:00 Monocytes % (Manual) 17.0 % (0.0-7.3) H 09/16/21 04:00 Eosinophils % (Manual) 1.0 % (0.0-4.3) 09/16/21 04:00 Basophils % (Manual) 1.0 % (0.0-1.8) 09/16/21 04:00 Metamyelocytes % 1.0 % 09/16/21 04:00 Myelocytes % 0 % 09/16/21 04:00 Promyelocytes % 0 % 09/16/21 04:00 Blast Cells % 1.0 % 09/16/21 04:00 Nucleated RBC % Not Reportable 09/16/21 04:00 Seg Neutrophils # Man 0.9 K/mm3 (1.8-7.7) L 09/16/21 04:00 Band Neutrophils # 0.0 K/mm3 09/16/21 04:00 Lymphocytes # (Manual) 1.0 K/mm3 (1.2-5.4) L 09/16/21 04:00 Abs React Lymphs (Man) 0.0 K/mm3 09/16/21 04:00 Monocytes # (Manual) 0.4 K/mm3 (0.0-0.8) 09/16/21 04:00 Eosinophils # (Manual) 0.0 K/mm3 (0.0-0.4) 09/16/21 04:00 Basophils # (Manual) 0.0 K/mm3 (0.0-0.1) 09/16/21 04:00 Metamyelocytes # 0.0 K/mm3 09/16/21 04:00 Myelocytes # 0.0 K/mm3 09/16/21 04:00 Promyelocytes # 0.0 K/mm3 09/16/21 04:00 Blast Cells # 0.5 K/mm3 09/16/21 04:00 WBC Morphology Not Reportable 09/16/21 04:00 Hypersegmented Neuts Not Reportable 09/16/21 04:00 Hyposegmented Neuts Not Reportable 09/16/21 04:00 Hypogranular Neuts Not Reportable 09/16/21 04:00 Smudge Cells Not Reportable 09/16/21 04:00 Toxic Granulation Not Reportable 09/16/21 04:00 Toxic Vacuolation Not Reportable 09/16/21 04:00 Dohle Bodies Not Reportable 09/16/21 04:00 Pelger-Huet Anomaly Not Reportable 09/16/21 04:00 Hal Rods Not Reportable 09/16/21 04:00 Platelet Estimate Consistent w auto 09/16/21 04:00 Clumped Platelets Not Reportable 09/16/21 04:00 Plt Clumps, EDTA Not Reportable 09/16/21 04:00 Large Platelets Not Reportable 09/16/21 04:00 Giant Platelets Not Reportable 09/16/21 04:00 Platelet Satelliting Not Reportable 09/16/21 04:00 Plt Morphology Comment Not Reportable 09/16/21 04:00 RBC Morphology Not Reportable 09/16/21 04:00 Dimorphic RBCs Not Reportable 09/16/21 04:00 Polychromasia Not Reportable 09/16/21 04:00 Hypochromasia Not Reportable 09/16/21 04:00 Poikilocytosis Not Reportable 09/16/21 04:00 Anisocytosis Not Reportable 09/16/21 04:00 Microcytosis Not Reportable 09/16/21 04:00 Macrocytosis Not Reportable 09/16/21 04:00 Spherocytes Not Reportable 09/16/21 04:00 Pappenheimer Bodies Not Reportable 09/16/21 04:00 Sickle Cells Not Reportable 09/16/21 04:00 Target Cells Not Reportable 09/16/21 04:00 Tear Drop Cells Not Reportable 09/16/21 04:00 Ovalocytes Not Reportable 09/16/21 04:00 Helmet Cells Not Reportable 09/16/21 04:00 [place] Bodies Not Reportable 09/16/21 04:00 [place] Rings Not Reportable 09/16/21 04:00 Elisabet Cells Not Reportable 09/16/21 04:00 Bite Cells Not Reportable 09/16/21 04:00 Crenated Cell Not Reportable 09/16/21 04:00 Elliptocytes Not Reportable 09/16/21 04:00 Acanthocytes (Spur) Not Reportable 09/16/21 04:00 Rouleaux Not Reportable 09/16/21 04:00 Hemoglobin C Crystals Not Reportable 09/16/21 04:00 Schistocytes Not Reportable 09/16/21 04:00 Malaria parasites Not Reportable 09/16/21 04:00 Rogelio Bodies Not Reportable 09/16/21 04:00 Hem Pathologist Commnt No 09/16/21 04:00 APTT 43.4 Sec. (24.2-36.6) H 09/14/21 14:01 Sodium 132 mmol/L (137-145) L 09/16/21 04:00 Potassium 3.8 mmol/L (3.6-5.0) 09/16/21 04:00 Chloride 95.3 mmol/L (98-107) L 09/16/21 04:00 Carbon Dioxide 28 mmol/L (22-30) 09/16/21 04:00 Anion Gap 13 mmol/L 09/16/21 04:00 BUN 5 mg/dL (9-20) L 09/16/21 04:00 Creatinine 0.5 mg/dL (0.8-1.3) L 09/16/21 04:00 Estimated GFR > 60 ml/min 09/16/21 04:00 BUN/Creatinine Ratio 10 % 09/16/21 04:00 Glucose 103 mg/dL (75-100) H 09/16/21 04:00 Lactic Acid 0.90 mmol/L (0.7-2.0) 09/15/21 00:03 Calcium 8.5 mg/dL (8.4-10.2) 09/16/21 04:00 Total Bilirubin 0.30 mg/dL (0.1-1.2) 09/15/21 05:17 AST 20 units/L (5-40) 09/15/21 05:17 ALT 16 units/L (7-56) 09/15/21 05:17 Alkaline Phosphatase 94 units/L (35-129) 09/15/21 05:17 Troponin T < 0.010 ng/mL (0.00-0.029) 09/14/21 14:01 Total Protein 6.7 g/dL (6.3-8.2) 09/15/21 05:17 Albumin 2.6 g/dL (3.9-5) L 09/15/21 05:17 Albumin/Globulin Ratio 0.6 % 09/15/21 05:17 Urine Color Yellow (Yellow) 09/14/21 16:56 Urine Turbidity Clear (Clear) 09/14/21 16:56 Urine pH 6.0 (5.0-7.0) 09/14/21 16:56 Ur Specific [place] 1.015 (1.003-1.030) 09/14/21 16:56 Urine Protein 30 mg/dl mg/dL (Negative) 09/14/21 16:56 Urine Glucose (UA) Negative mg/dL (Negative) 09/14/21 16:56 Urine Ketones Negative mg/dL (Negative) 09/14/21 16:56 Urine Blood Negative (Negative) 09/14/21 16:56 Urine Nitrite Negative (Negative) 09/14/21 16:56 Ur Reducing Substances Not Reportable 09/14/21 16:56 Urine Bilirubin Negative (Negative) 09/14/21 16:56 Urine Ictotest Not Reportable 09/14/21 16:56 Urine Urobilinogen 0.2 mg/dL (<2.0) 09/14/21 16:56 Ur Leukocyte Esterase Negative (Negative) 09/14/21 16:56 Urine WBC (Auto) 3.0 /HPF (0.0-6.0) 09/14/21 16:56 Urine RBC (Auto) 4.0 /HPF (0.0-6.0) 09/14/21 16:56 Urine Mucus Few /HPF 09/14/21 16:56 Blood Type O NEGATIVE 09/15/21 10:55 Antibody Screen Negative 09/15/21 10:55 Crossmatch See Detail 09/15/21 10:55 Microbiology: Microbiology 09/14/21 14:01 Peripheral/Venous Blood Culture - Preliminary NO GROWTH AFTER 48 HOURS 09/14/21 14:01 Peripheral/Venous Blood Culture - Preliminary NO GROWTH AFTER 48 HOURS 09/16/21 Unknown Sputum - Expectorated Sputum Sputum Culture - Final [place]/IV: Voiding Method Urinal Active Medications - Current Medications Current Medications: Generic Name Dose Route Start Last Admin Trade Name Freq PRN Reason Stop Dose Admin Acetaminophen 650 mg 09/14/21 16:39 Acetaminophen 325 Mg Tab PO Q4H PRN Pain MILD(1-3)/Fever >100.5/HYATT Albuterol 2.5 mg 09/14/21 16:39 Albuterol 2.5 Mg/3 Ml Nebu IH Q4HRT PRN Shortness Of Breath Guaifenesin 10 ml 09/16/21 13:07 09/16/21 13:21 Guaifenesin Dm 200/20 Mg Oral Liqd 10 Ml PO 10 ml Q6H PRN Administration Cough Hydromorphone HCl 0.5 mg 09/14/21 16:36 09/17/21 06:13 Hydromorphone 0.5 Mg/0.5 Ml Inj IV 0.5 mg Q24H PRN Administration Pain , Severe (7-10) Hydromorphone HCl 0.25 mg 09/14/21 16:43 Hydromorphone 0.5 Mg/0.5 Ml Inj IV Q24H PRN Pain, Moderate (4-6) Azithromycin 500 mg in 250 mls @ 250 mls/hr 09/14/21 17:00 09/16/21 17:28 Zithromax/Ns IV 250 mls/hr Q24H BEATA Administration Protocol Sodium Chloride 1,000 mls @ 125 mls/hr 09/14/21 16:45 09/16/21 14:47 Nacl 0.9% 1000 Ml IV 125 mls/hr DIRECT BEATA Administration Cefepime HCl 2 gm in 100 mls @ 200 mls/hr 09/15/21 14:00 09/17/21 02:04 Cefepime/Ns 2 Gm/100 Ml IV 200 mls/hr Q12H BEATA Administration Protocol Vancomycin HCl 1,250 mg/ 275 mls @ 137.5 mls/hr 09/15/21 14:00 09/17/21 07:46 Sodium Chloride IV Infused Q12H BEATA Infusion Protocol Ondansetron HCl 4 mg 09/14/21 16:39 Ondansetron 4 Mg/2 Ml Inj IV Q8H PRN Nausea And Vomiting Oxycodone/Acetaminophen 1 tab 09/14/21 16:39 Oxycodone /Acetaminophen 5-325mg Tab PO Q16H PRN Pain, Moderate (4-6) Sodium Chloride 10 ml 09/14/21 22:00 09/16/21 21:31 Sodium Chloride 0.9% 10 Ml Flush Syringe IV 10 ml BID BEATA Administration Sodium Chloride 10 ml 09/14/21 16:39 Sodium Chloride 0.9% 10 Ml Flush Syringe IV PRN PRN LINE FLUSH
--- NOTE | 2021-09-17 10:01 | Progress Note ---
Assessment and Plan Cultures: 09/14/2021 blood culture: no growth 09/16/2021 sputum culture: Oral contamination A/P: 46-year-old male with HIV, lung cancer, on chemotherapy currently was admitted to the hospital with chest pain and fever: #Sepsis, febrile neutropenia, likely secondary to right upper lobe pneumonia #HIV: Positive for 21 years, has mainly been undetectable, used to be on Genvoya but changed to Biktarvy due to drug interaction with Eliquis. Follows at [facility] [place] #Stage IV lung cancer, on chemotherapy. Immunocompromised host. Follows at [facility]. #Hyponatremia: Probably SIADH given pneumonia and lung cancer. Recs: Okay for discharge on PO levofloxacin 750 mg daily + doxycycline 100 mg BID x 7 days continue ART and f/u his providers at [facility] Song Garcia MD, FACP, [facility] O: [phone] F: [phone] C: [phone] Subjective Date of service: 09/17/21 Interval history: No fever. T-max yesterday 99.9 F. Feels better today, says he wants to go home. Remains on room air. Objective - Exam Narrative Exam: Physical Exam: Constitutional: Alert, cooperative. No acute distress Head, Ears, Nose: Normocephalic, atraumatic. External ears, nose normal Eyes: Conjunctivae/corneas clear. No icterus. No ptosis. Neck: Supple, no meningeal signs Cardiovascular: S1, S2 + Respiratory: few rhonchi on R side GI: Soft, non-tender; bowel sounds normal. No peritoneal signs Musculoskeletal: No pedal edema, no cyanosis. Skin: No rash or abscess Hem/Lymphatic: No palpable cervical or supraclavicular nodes. No lymphangitis Psych: Mood ok. Affect normal Neurological: Awake, alert, oriented. No gross abnormality - Constitutional Vitals: Vital Signs Temp Pulse Resp BP Pulse Ox 99.0 F 125 H 18 124/85 98 09/16/21 20:50 09/16/21 20:50 09/16/21 20:50 09/16/21 20:50 09/17/21 09:38 Temperature -Last 24 Hours Temperature 99.0 F Temperature 99.9 F - Labs CBC & Chem 7: 09/16/21 04:00 09/16/21 04:00
--- NOTE | 2021-09-17 10:09 | Electrocardiograph Report ---
[facility] Test Date: 2021-09-14 Test Time: 14:02:08 Pat Name: ASHA RUTH Department: Room: A379 Gender: M Manager Sustainability: ELLEN : 1975 Requested By: RALPH LEARY Order Number: [id number] Reading MD: Shima Arriola Measurements Intervals [place] Rate: 135 P: 75 NE: 128 QRS: 31 QRSD: 79 T: 61 QT: 294 QTc: 441 Interpretive Statements Sinus tachycardia Atrial premature complex Probable left atrial enlargement Anterior infarct, old No previous ECG available for comparison Electronically Signed On 09-17-2021 10:08:33 EDT by Shima Arriola
[2021-09-17] MEDS ORDERED: SODIUM CHLORIDE 0.9% 1000 ML 1,000 ML IV SCH (10:30)
[2021-09-17 12:39] VITALS: BP 108/84
--- NOTE | 2021-09-17 12:53 | Discharge Summary ---
Providers - Providers Date of Admission: 09/14/21 16:41 Date of discharge: 09/17/21 Attending physician: ROCK POOL 09/15/21 10:53 Consult to Physician [CONS] Routine Comment: Consulting Provider: MINO WOODARD Physician Instructions: Reason For Exam: HIV, PNA Primary care physician: ALIYAH DUVAL Hospitalization Reason for admission: PNA Condition: Fair Hospital course: 46 YO Male with HIV, Malnutrition, Right Lung Malignancy presents to ED for evaluation of chest wall discomfort over the past 3 days with worsening symptoms over the past 1 day [employer]. Patient also reports fever 103 F while at home. Patient transported to [facility] for further care and evaluation of the aforementioned symptoms. The patient was seen and evaluated upon arrival to the emergency department. All lab and imaging studies reviewed. Patient underwent chest x- ray which revealed right upper lobe pneumonia complicated by sepsis, malnutrition, and HIV disease. Patient admitted with dx below: Sepsis History of right lung CA Right upper lobe pneumonia Anemia of chronic disease SIADH/hyponatremia Moderate protein calorie malnutrition HIV disease Hospital course: 09/15/2021. Continue IV antibiotics and follow-up blood cultures. Consult ID for further evaluation. We will transfuse 1 unit PRBCs given the hemoglobin of 6.9. 09/16/2021. Patient request to be transferred to [place]. Patient reports that he will have a name and number of an accepting physician in the a.m. patient is s/p PRBCs with improvement of hemoglobin 8.5. Continue empiric antibiotics of cefepime, vancomycin and azithromycin. Follow-up blood and sputum cultures. If MRSA nasal PCR negative then discontinue vancomycin. ID following 09/17/2021. ID following and reports that pt okay for d/c on levofloxacin 750 mg daily + doxycycline 100 mg BID x 7 days Disposition: 01 HOME / SELF CARE / HOMELESS Final Discharge Diagnosis (Prints w/discharge instructions): Sepsis. History of right lung CA. Right upper lobe pneumonia. Anemia of chronic disease. SIAD H/hyponatremia. Moderate protein calorie malnutrition. HIV disease Core Measure Documentation - Palliative Care Palliative Care/ Comfort Measures: Not Applicable - Core Measures Any of the following diagnoses?: none Exam - Constitutional Vitals: Temp Pulse Resp BP Pulse Ox 98.3 F 127 H 22 108/84 100 09/17/21 11:47 09/17/21 11:47 09/17/21 11:47 09/17/21 11:47 09/17/21 11:47 General appearance: Present: no acute distress, well-nourished - EENT Eyes: Present: PERRL ENT: hearing intact, clear oral mucosa - Neck Neck: Present: supple, normal ROM - Respiratory Respiratory effort: normal Respiratory: bilateral: CTA - Cardiovascular Heart Sounds: Present: S1 & S2. Absent: rub, click - Extremities Extremities: pulses symmetrical, No edema Peripheral Pulses: within normal limits - Abdominal General gastrointestinal: Present: soft, non-tender, non-distended, normal bowel sounds Male genitourinary: Present: normal - Integumentary Integumentary: Present: clear, warm, dry - Musculoskeletal Musculoskeletal: gait normal, strength equal bilaterally - Psychiatric Psychiatric: appropriate mood/affect, intact judgment & insight - Neurologic Neurologic: CNII-XII intact, moves all extremities Plan Activity: advance as tolerated Weight Bearing Status: Weight Bear as Tolerated Diet: regular Follow up with: ALIYAH DUVAL MD [Primary Care Provider] - 3-5 Days Forms: AMA Form Prescriptions: Doxycycline Hyclate [Doxycycline Hyclate TAB] 100 mg PO Q12HR #14 tab levoFLOXacin [Levaquin] 750 mg PO QDAY #7 tablet
== END 2021-09-17 14:07 | disposition home or self-care (01) | DRG 975 ==
LOC: ED 12:18 → 3A 16:41
PROVIDERS: ADMIT Internal Medicine; ATTEND Hospitalist
PROC: 30233N1 Transfusion of Nonautologous Red Blood Cells into Peripheral Vein, Percutaneous Approach (ICD-10-PCS; principal; 2021-09-15)
DX: A41.9 Sepsis, unspecified organism (principal); B20 Human immunodeficiency virus [HIV] disease; C34.11 Malignant neoplasm of upper lobe, right bronchus or lung; J18.9 Pneumonia, unspecified organism; E44.0 Moderate protein-calorie malnutrition; Z68.1 Body mass index [BMI] 19.9 or less, adult; E22.2 Syndrome of inappropriate secretion of antidiuretic hormone; D63.8 Anemia in other chronic diseases classified elsewhere; Z82.49 Family history of ischemic heart disease and other diseases of the circulatory system
CPT/HCPCS: 36415; 71045; 71275; 80048; 80053; 81001; 82140; 84484; 85007; 85025; 85730; 86850; 86900; 86901; 86920; 87040; 87205; 93005; G0378; J0456; J0692; J0696; J1170; J3370; J7030; J7040; P9016; Q9967